=== PATIENT | female | born 1980 | race Caucasian/White ===

== ENCOUNTER 2016-07-02 15:50 | Outpatient (CLI) ==
--- NOTE | 2016-07-02 16:31 | DI ---
EXAM: Supine abdominal radiograph. HISTORY: Hematuria. COMPARISON: CT 04/20/2011. FINDINGS: Air and stool present throughout the colon, including rectum. Air seen within nondistend ed small bowel loops. No masses or abnormal calcifications identified. Pelvic phleboliths are pres ent. Osseous structures are intact. IMPRESSION: No acute radiographic abnormality of the abdomen.
== END 2016-07-02 15:51 | disposition home or self-care (01) ==
LOC: RAD 15:50
PROVIDERS: ATTEND Nurse Practitioner Family
DX: R31.9 Hematuria, unspecified (principal); N92.6 Irregular menstruation, unspecified; R10.2 Pelvic and perineal pain

== ENCOUNTER 2016-07-06 07:18 | Outpatient (CLI) ==
--- NOTE | 2016-07-06 08:10 | US ---
EXAM: Renal ultrasound. History: Hematuria. Technique: Multiple sonographic images through the kidneys were obtained. Color duplex Doppler was used to interrogate vascular flow. Findings: The right kidney measures 10.7 cm in long length demonstrating normal cortical echogenicity without evidence for hydronephrosis, mass or shadowing calculus. The bladder is not well distended and demonstrates diffuse wall thickening likely related to the non distension. The left kidney measures 10.4 cm in long length demonstrating normal cortical echogenicity without e vidence for hydronephrosis, mass or shadowing calculus. Impression: Sonographically normal kidneys.
== END 2016-07-06 07:19 | disposition home or self-care (01) ==
LOC: RAD 07:18
PROVIDERS: ATTEND Nurse Practitioner Family
DX: R31.9 Hematuria, unspecified (principal); N92.6 Irregular menstruation, unspecified; R10.2 Pelvic and perineal pain
CPT/HCPCS: 76770

== ENCOUNTER 2016-08-27 12:23 | Outpatient (CLI) | END 2016-08-27 12:24 | disposition home or self-care (01) | LOC: LAB 12:23 | PROVIDERS: ATTEND Nurse Practitioner Family | DX: J02.9 Acute pharyngitis, unspecified (principal) | CPT/HCPCS: 87651; 87880 ==

== ENCOUNTER 2017-03-04 13:17 | Outpatient (CLI) | END 2017-03-04 13:18 | disposition home or self-care (01) | LOC: LAB 13:17 | PROVIDERS: ATTEND Nurse Practitioner Family | DX: J02.9 Acute pharyngitis, unspecified (principal) | CPT/HCPCS: 87651; 87880 ==

== ENCOUNTER 2018-05-11 15:43 | Outpatient (CLI) | END 2018-05-11 15:44 | disposition home or self-care (01) | LOC: RHC-LAB 15:43 | PROVIDERS: ATTEND Nurse Practitioner Family | DX: R05 Cough (principal); J02.9 Acute pharyngitis, unspecified | CPT/HCPCS: 87502; 87651 ==